=== PATIENT | female | born 1965 | race Caucasian/White ===

== ENCOUNTER 2018-04-26 06:34 | Day surgery (SDC) | payer OTHER ==
[~2018-04-26] VITALS: Ht 165.1 cm; Wt 94.3 kg
[2018-04-26] MEDS ORDERED: KETOROLAC 30 MG/ML VIAL ONE (08:14)
[2018-04-26] MEDS ORDERED: LIDOCAINE 2% 100 MG/5 ML UJET TP ONE (08:14)
== END 2018-04-26 09:25 | disposition home or self-care (01) ==
LOC: MDS 06:34 → MMU 06:34 → MDS 09:25
PROVIDERS: ATTEND Internal Medicine Gastroenterology
DX: Z12.11 Encounter for screening for malignant neoplasm of colon (principal); K63.5 Polyp of colon; K57.20 Diverticulitis of large intestine with perforation and abscess without bleeding; I10 Essential (primary) hypertension; E78.5 Hyperlipidemia, unspecified; E66.9 Obesity, unspecified; Z68.34 Body mass index [BMI] 34.0-34.9, adult; Z98.890 Other specified postprocedural states; Z98.49 Cataract extraction status, unspecified eye; Z79.899 Other long term (current) drug therapy
CPT/HCPCS: 45385; J1885

== ENCOUNTER 2021-07-23 09:05 | Day surgery (SDC) | payer OTHER, SELFPAY ==
[~2021-07-23] VITALS: Ht 162.6 cm; Wt 95.3 kg
[2021-07-23] MEDS ORDERED: fentaNYL citrate 0.05 MG/ML VIAL ONE (11:39)
[2021-07-23] MEDS ORDERED: LIDOCAINE 2% 100 MG/5 ML UJET TP ONE (11:39)
[2021-07-23] MEDS ORDERED: fentaNYL citrate 0.05 MG/ML VIAL IVP ONE (12:40)
== END 2021-07-23 12:57 | disposition home or self-care (01) ==
LOC: MMU 09:05 → MDS 09:05
PROVIDERS: ATTEND Internal Medicine Gastroenterology
DX: Z12.11 Encounter for screening for malignant neoplasm of colon (principal); Z86.010 Personal history of colon polyps; Z79.899 Other long term (current) drug therapy; Z20.822 Contact with and (suspected) exposure to COVID-19
CPT/HCPCS: J3010